=== PATIENT | female | born 1965 | race Asian ===

== ENCOUNTER → 2025-06-03 07:08 | Outpatient (REF) | payer BC, SELFPAY | LOC: HWRCS 07:08 | PROVIDERS: ATTENDING PHYSICIAN Internal Medicine; FAMILY PHYSICIAN Hospitalist | DX: R06.09 Other forms of dyspnea (principal); I10 Essential (primary) hypertension; I49.3 Ventricular premature depolarization; I49.1 Atrial premature depolarization | CPT/HCPCS: 93306 ==

== ENCOUNTER → 2025-06-10 14:33 | Outpatient (REF) | payer BC, SELFPAY | LOC: RCS 14:33 | PROVIDERS: ATTENDING PHYSICIAN Internal Medicine; FAMILY PHYSICIAN Hospitalist | DX: R06.09 Other forms of dyspnea (principal); I10 Essential (primary) hypertension; I49.3 Ventricular premature depolarization; I49.1 Atrial premature depolarization | CPT/HCPCS: 93017 ==

== ENCOUNTER → 2025-06-18 10:29 | Outpatient (REF) | payer BC, SELFPAY | LOC: HWWDC 10:29 | PROVIDERS: ATTENDING PHYSICIAN Obstetrics & Gynecology Gynecology; FAMILY PHYSICIAN Hospitalist | DX: Z12.31 Encounter for screening mammogram for malignant neoplasm of breast (principal) | CPT/HCPCS: 77063; 77067 ==

== ENCOUNTER → 2025-07-02 09:13 | Outpatient (REF) | payer BC, SELFPAY | LOC: WDC 09:13 | PROVIDERS: ATTENDING PHYSICIAN Obstetrics & Gynecology Gynecology; FAMILY PHYSICIAN Hospitalist | DX: R92.8 Other abnormal and inconclusive findings on diagnostic imaging of breast (principal) | CPT/HCPCS: 76642 ==

== ENCOUNTER → 2025-07-24 10:52 | Outpatient (REF) | payer BC, SELFPAY | LOC: HWRAD 10:52 | PROVIDERS: ATTENDING PHYSICIAN Internal Medicine Rheumatology; FAMILY PHYSICIAN Internal Medicine | DX: M81.0 Age-related osteoporosis without current pathological fracture (principal); Z13.820 Encounter for screening for osteoporosis | CPT/HCPCS: 77080 ==